=== PATIENT | female | born 2000 | race Caucasian/White ===

== ENCOUNTER 2022-02-04 11:08 | Emergency (ER) | payer OTHER ==
[~2022-02-04] VITALS: Ht 165.1 cm; Wt 56.8 kg
[2022-02-04 11:23] VITALS: TEMP 97.6
[2022-02-04 11:57] LABS: BASO % 0.3 % (0.0-2.0); EOS # 0.1 K/mm3 (0.0-0.7); EOS % 0.6 % (0.0-4.0); GRAN # 6.1 K/mm3 (1.4-6.5); GRAN % 65.3 % (42.2-75.2); HEMATOCRIT 46.3 % (35.0-45.0); HEMOGLOBIN 15.3 g/dl (12.0-15.0); LYMPH # 2.6 K/mm3 (1.2-3.4); LYMPH % 28.1 % (20.0-51.0); MEAN CELL VOLUME 90 fl (80.0-95.0); MEAN CORPUSCULAR HEMOGLOBIN 30 pg (26-32); MEAN CORPUSCULAR HGB CONC 33 g/dl (33.0-37.0); MEAN PLATELET VOLUME 10.4 fl (7.4-10.4); MONO # 0.5 K/mm3 (0.1-0.6); MONO % 5.5 % (1.7-9.3); PLATELET COUNT 245 K/mm3 (130-400); RED BLOOD COUNT 5.14 M/mm3 (4.10-5.30); REDCELL DISTRIBUTION WIDTH-CV 12.4 % (11.5-14.5)
[2022-02-04 12:11] LABS: ALBUMIN 4.6 gm/dL (3.5-5.0); BILIRUBIN,TOTAL 0.6 mg/dL (0.2-1.2); CALCIUM 9.5 mg/dL (8.4-10.2); CREATININE, serum 0.88 mg/dL (0.57-1.11); POTASSIUM 3.8 mmol/L (3.5-4.5); TOTAL PROTEIN 8.1 gm/dL (6.2-8.1)
[2022-02-04 12:23] LABS: COLLECTION METHOD CLEAN CATCH
[2022-02-04 12:33] LABS: URINE APPEARANCE Clear (CLEAR/HAZY); URINE GLUCOSE 1+ (NEGATIVE); URINE PROTEIN(semi-quant) 3+ (NEGATIVE)
[2022-02-04 12:34] LABS: URINE BLOOD TRACE-INTACT (NEGATIVE); URINE KETONE 1+ (NEGATIVE); URINE NITRATE Positive (NEGATIVE); URINE UROBILINOGEN >8.0 E.U/dL (0.2-1.0)
[2022-02-04 12:36] LABS: MUCOUS Present (NOT PRESENT); SQUAMOUS EPITHELIAL 20-50 /hpf (0-10); URINE BACTERIA Rare /hpf (NONE SEEN); URINE CALCIUM OXALATE CRYSTAL Present (NOT PRESENT)
[2022-02-04 12:38] LABS: URINE COLOR OTHER (YELLOW)
[2022-02-04] MEDS ORDERED: OMNICEF 300MG300 MG PO (13:24)
[2022-02-04] MEDS ORDERED: ZOFRAN ODT4 MG PO (13:25)
[2022-02-04 14:16] VITALS: BP 115/65; PULSE 75
== END 2022-02-04 14:19 | disposition home or self-care (01) ==
LOC: COL.ER 11:08
PROVIDERS: Family Medicine; Physician Assistant
DX: N12 Tubulo-interstitial nephritis, not specified as acute or chronic (principal)
CPT/HCPCS: J0696; J1885; J2405; J7030; Q9967